=== PATIENT | male | born 1970 | race Caucasian/White ===

== ENCOUNTER 2017-05-17 10:09 | Emergency (ER) | payer OTHER ==
[~2017-05-17] VITALS: Ht 177.8 cm; Wt 71.7 kg
--- NOTE | 2017-05-17 10:22 | NUR ---
pt is in room #2b. dr Ceron evaluated the pt.
[2017-05-17] MEDS: IBUPROFEN 800 MG TABLET PO ONE (10:37)
[2017-05-17] MEDS ORDERED: IBUPROFEN 800 MG TABLET ONE (10:50)
[2017-05-17 10:55] LABS: POTASSIUM 3.8 mmol/L (3.5-5.1)
[2017-05-17 11:03] LABS: BASOPHILS # (AUTO) 0.1 K/uL (0.0-8.0); BASOPHILS % (AUTO) 1.1 % (0.0-2.0); EOSINOPHILS # (AUTO) 0.1 K/uL (0.0-0.7); EOSINOPHILS % (AUTO) 1.8 % (0.0-7.0); LYMPHOCYTES # (AUTO) 1.4 K/UL (0.8-4.8); LYMPHOCYTES % (AUTO) 24.2 % (20.5-51.5); MEAN CORPUSCULAR HGB CONC 33 g/dL (32.0-37.0); MEAN CORPUSCULAR VOLUME 76.8 FL (82.0-92.0); MONOCYTES # (AUTO) 0.5 K/UL (0.1-1.30); MONOCYTES % (AUTO) 9.1 % (0.0-11.0); NEUTROPHILS # (AUTO) 3.8 K/UL (1.8-8.9); NEUTROPHILS % (AUTO) 63.8 % (38.5-71.5); PLATELET COUNT (AUTO) 354 K/UL (150-450); RED BLOOD CELL COUNT(AUTO) 5.21 MIL/UL (4.7-6.1); WHITE BLOOD COUNT (AUTO) 5.9 K/UL (4.0-11.2)
[2017-05-17 11:10] LABS: BILIRUBIN,DIRECT 0.1 mg/dL (0.0-0.2); BILIRUBIN,TOTAL 0.5 mg/dL (0.2-1.0); TOTAL PROTEIN, SERUM 6.7 g/dL (6.4-8.2)
[2017-05-17 11:19] LABS: *BILIRUBIN,URIN NEGATIVE (NEGATIVE); *BLOOD, URINE Trace-intact (NEGATIVE); *CLARITY,URINE CLEAR (CLEAR); *COLOR,URINE YELLOW (YELLOW); *KETONES,URINE NEGATIVE (NEGATIVE); *PROTEIN,URINE 1+ (NEGATIVE); LEUKOCYTE ESTERASE ,URINE NEGATIVE (NEGATIVE); NITRITE, URINE NEGATIVE (NEGATIVE); UGLUCOSE NEGATIVE (NEGATIVE)
[2017-05-17 11:34] LABS: BACTERIA,URINE FEW /HPF (NONE SEEN); MUCUS,URINE FEW /LPF (0-FEW); RBC,URINE 0-3 /HPF (0-3); SQUAMOUS EPITHELIAL CELL,UR FEW /HPF (NONE SEEN); WBC,URINE 0-3 /HPF (0-3)
--- NOTE | 2017-05-17 11:54 | NUR ---
pt was d/c to home. d/c instructions given to the pt.
[2017-05-17 11:55] VITALS: BP 135/72
== END 2017-05-17 11:56 | disposition home or self-care (01) ==
LOC: ER 10:09
DX: R10.9 Unspecified abdominal pain (principal); F17.200 Nicotine dependence, unspecified, uncomplicated; F19.10 Other psychoactive substance abuse, uncomplicated; F41.9 Anxiety disorder, unspecified; Z88.0 Allergy status to penicillin
CPT/HCPCS: 36415; 70030-TC; 83690; 85025; 87086; A4663

== ENCOUNTER 2022-11-06 15:57 | Emergency (ER) | payer OTHER ==
[~2022-11-06] VITALS: Ht 177.8 cm; Wt 77.1 kg
--- NOTE | 2022-11-06 16:24 | NUR ---
Pt was triaged and waiting in the ER waiting room. The ER is saturated and there are no available beds.
--- NOTE | 2022-11-06 19:40 | NUR ---
Patient was called in the waiting room to be swab with covid and FLU but was not present in the waiting room or outside of ER.
--- NOTE | 2022-11-06 20:30 | NUR ---
Patient was called to have swab done but was not present in the waiting room or outside of ER.
--- NOTE | 2022-11-06 21:00 | NUR ---
PATIENT WAS CALLED TO BE TRAIGED BUT WAS NOT PRESENT. PATIENT WAS NOT TRIAGED OR SEEN BY [facility].
== END 2022-11-06 21:00 | disposition left against medical advice (07) ==
LOC: ER 15:57
DX: Z53.21 Procedure and treatment not carried out due to patient leaving prior to being seen by health care provider (principal)
CPT/HCPCS: A4663

== ENCOUNTER 2023-10-09 16:50 | Emergency (ER) | payer SELFPAY ==
[~2023-10-09] VITALS: Ht 177.8 cm; Wt 73.9 kg
[2023-10-09] MEDS ORDERED: LIDOCAINE HCL 1% 20 ML VIAL ONE (17:55)
[2023-10-09] MEDS ORDERED: ACETAMINOPHEN 325 MG TABLET PO ONE (18:00)
[2023-10-09] MEDS ORDERED: LIDOCAINE HCL 1% 20 ML VIAL IJ ONE (18:00)
[2023-10-09] MEDS ORDERED: ACETAMINOPHEN ES 500 MG TABLET ONE (18:04)
[2023-10-09] MEDS ORDERED: SULF1TAB48 PO (19:03)
[2023-10-09] MEDS ORDERED: SULFAMETH/TRIMETH 800/160 MG TABLET PO ONE (19:15)
[2023-10-09] MEDS ORDERED: SULFAMETH/TRIMETH 800/160 MG TABLET ONE (19:20)
[2023-10-09] MEDS ORDERED: IBUPROFEN 600 MG TABLET ONE (19:58)
[2023-10-09] MEDS ORDERED: IBUPROFEN 600 MG TABLET PO ONE (20:00)
[2023-10-09 20:15] VITALS: BP 132/75; TEMP 98.5; O2SAT 99
== END 2023-10-09 20:15 | disposition home or self-care (01) ==
LOC: ER 16:52
DX: L03.011 Cellulitis of right finger (principal); F17.200 Nicotine dependence, unspecified, uncomplicated; F41.9 Anxiety disorder, unspecified; Z98.890 Other specified postprocedural states; Z88.0 Allergy status to penicillin
CPT/HCPCS: 99284; 26010; J3490; A4606; A4663; A9150